=== PATIENT | male | born 1995 | race African-American/Black ===

== ENCOUNTER 2023-12-20 16:52 | Outpatient (CLI) | payer BC, SELFPAY ==
--- NOTE | 2023-12-20 16:53 | MR_ITS ---
PROCEDURE INFORMATION: Exam: MR Right Upper Extremity Other Than Joint Without and With Contrast; Hand Exam date and time: 12/20/2023 5:13 PM Age: 28 years old Clinical indication: Pain; Hand; Right; Additional info: Mass and tenderness of fourth finger TECHNIQUE: Imaging protocol: MR of the right upper extremity without and with contrast. Exam focused on the hand. Contrast material: PROHANCE; Contrast volume: 17 ml; Contrast route: IV; COMPARISON: No relevant prior studies available. FINDINGS: Bones/joints: There is mild marrow edema and enhancement involving of the distal shaft of the 4th proximal phalanx. No discrete fracture or dislocation evident. No severe arthritic changes evident. Collateral ligaments of digits: Unremarkable. No evidence of tear. Flexor compartment tendons: Unremarkable. No evidence of tear. Extensor compartment tendons: Unremarkable. No evidence of tear. Soft tissues: Diffuse soft tissue swelling of the 4th finger including soft tissue swelling/thickening between the flexor tendon in the shaft of the 4th proximal phalanx. No well-defined soft tissue fluid collection. Heterogeneous soft tissue mass measuring approximately 7 mm in diameter noted along the inferomedial margin of the distal shaft of the 4th proximal phalanx appears to produce underlying cortical erosion. IMPRESSION: Mild marrow edema and enhancement of the 4th proximal phalanx with surrounding soft tissue swelling and adjacent heterogeneous 7 mm soft tissue mass with associated cortical erosion. Depending on clinical presentation, differential diagnosis would include infectious process including osteomyelitis, sequela of recent trauma or neoplastic process, specifically chondrosarcoma. Correlation with plain film and/or CT recommended.
[2023-12-20] MEDS: GADOTERIDOL INJ 20ML SYRINGE 17 ML IV (18:00)
[2023-12-20] MEDS: SODIUM CHLORIDE 0.9% 10ML SYR (RAD ONLY) 10 ML IV (18:00)
== END 2023-12-20 23:59 | disposition home or self-care (01) ==
LOC: RAD 16:53
PROVIDERS: PCP Nurse Practitioner Family; Visit Provider Nurse Practitioner Family
DX: R22.31 Localized swelling, mass and lump, right upper limb (principal)
CPT/HCPCS: 73220; A9576

== ENCOUNTER 2024-02-13 16:32 | Outpatient (CLI) | payer BC, SELFPAY ==
[2024-02-13 16:43] LABS: Basophils # 0.1 K/mm3 (0-0.2); Basophils % 0.6 % (0.1-2.0); Eosinophils # 0.1 K/mm3 (0.0-0.4); Eosinophils % 1.2 % (0.1-12.0); Hematocrit 45.6 % (42.0-52.0); Hemoglobin 14.7 g/dL (14.1-18.0); Lymphocytes # 2.2 K/mm3 (0.7-4.5); Lymphocytes % 30.6 % (10-50); Mean Corpuscular HGB Conc 32.1 g/dL (31.8-35.4); Mean Corpuscular Hemoglobin 28.9 pg (27.0-31.2); Mean Corpuscular Volume 89.8 fl (80-94); Monocytes # 0.5 K/mm3 (0.1-1.0); Monocytes % 6.9 % (1.7-9.3); Neutrophils # 4.3 K/mm3 (1.8-7.8); Neutrophils % 60.6 % (37.0-80.0); Platelet Count 302 K/mm3 (142-424); Red Blood Count 5.08 M/mm3 (4.60-6.20); Red Cell Distribution Width 13.9 % (11.5-17.5); White Blood Count 7.1 K/mm3 (4.8-10.8)
[2024-02-13 16:55] LABS: Alanine Aminotransferase 20 U/L (12-78); Albumin Level 4.5 g/dl (3.5-5.0); Albumin/Globulin Ratio 1.5 (1.1-1.8); Alkaline Phosphatase 54 U/L (38-126); Anion Gap 8.2 mEq/L (5-15); Aspartate Amino Transferase 34 U/L (17-59); Bilirubin,Total 0.7 mg/dl (0.2-1.3); Blood Urea Nitrogen 8 mg/dl (9-20); Calcium 9.6 mg/dl (8.4-10.2); Carbon Dioxide 28 mmol/L (22.0-30.0); Chloride 107 mmol/L (98-107); Chol/HDL Ratio 4.1 (1-3.5); Cholesterol 202 mg/dl (140-200); Estimated Glomerular Filt Rate 99 ml/min (>60); GFR (African American) 120 ML/MIN (>60); Glucose 55 mg/dl (74-100); HDL Cholesterol 49 mg/dl (40-60); Potassium 5.2 mmoL/L (3.5-5.1); Sodium 138 mmol/L (136-145); Total Protein,Serum 7.5 g/dl (6.3-8.2); Triglycerides 49 mg/dl (30-150); VLDL Cholesterol 10 mg/dL (0-40)
[2024-02-13 17:06] LABS: Direct LDL Cholesterol 127.87 mg/dL (100-129)
[2024-02-13 17:12] LABS: 25-OH Vitamin D, Total 34.4 ng/mL (30-100)
[2024-02-13 17:26] LABS: Thyroid Stimulating Hormone 0.73 uIU/mL (0.465-4.68)
[2024-02-13 17:51] LABS: HIV (1&2) Antibody Rapid NONREACTIVE (NONREACTIVE)
[2024-02-15 07:13] LABS: HCV Ab Non Reactive (Non Reactive)
[2024-02-16 07:12] LABS: Neisseria gonorrhoeae, NAA Negative (Negative)
== END 2024-02-13 23:59 | disposition home or self-care (01) ==
LOC: LAB.DROPOF 16:33
PROVIDERS: PCP Family Medicine; Visit Provider Family Medicine
DX: Z00.00 Encounter for general adult medical examination without abnormal findings (principal); R53.83 Other fatigue
CPT/HCPCS: 80050; 80053; 80061; 82306; 84443; 85025; 86803; 87389; 87491; 87591

== ENCOUNTER 2024-05-22 08:52 | Emergency (ER) | payer OTHER, SELFPAY ==
[2024-05-22 08:53] VITALS: BP 119/78; PULSE 83; RESP 18; TEMP 36.6; O2SAT 99; BMI 25.1
[2024-05-22 08:56] VITALS: BP 119/78; PULSE 86; O2SAT 99
--- NOTE | 2024-05-22 09:00 | PC.NURSE ---
DR NEVES AT BEDSIDE
--- NOTE | 2024-05-22 09:05 | US_ITS ---
FINAL REPORT TECHNIQUE: Sonographic images of the testicles and scrotum were obtained in the longitudinal and transverse planes. CLINICAL HISTORY: right testicle swelling x 4 days FINDINGS: The right testicle measures 4.3 x 1.7 x 2.7 centimeters. There is no intratesticular mass. The epididymis is mildly prominent and there may be mild edema of the spermatic cord. There may be a small varicocele. There is blood flow to the right testicle. There is no evidence of testicular torsion. There is a small to moderate right hydrocele. The left testicle measures 3.3 x 2.2 x 3.7 centimeters. There is no intratesticular mass. The epididymis is within normal limits. There is blood flow to the left testicle. There is no evidence of testicular torsion. There is no left hydrocele. IMPRESSION: No evidence of intratesticular mass or testicular torsion. Possible right epididymitis with reactive hydrocele. Consider follow-up. Reviewed, Interpreted and Dictated by Glory Arnold MD Transcribed by Antionette Benavides Authenticated and [facility]
--- NOTE | 2024-05-22 09:09 | ED_ITS ---
Discharge Plan Disposition Patient Disposition: Home, Self-Care Prescriptions Prescriptions: New doxycycline hyclate 100 mg capsule 100 mg PO BID 10 Days Qty: 20 0RF No Action trazodone 100 mg tablet 100 mg PO HS aripiprazole 15 mg tablet 15 mg PO DAILY lamotrigine 200 mg tablet 200 mg PO DAILY hydroxyzine HCl 50 mg tablet 50 mg PO TID PRN Referrals Follow up/Referrals: Marshal Kaminski MD [Primary Care Provider] - See instructions Activity Restrictions/Add. Instructions Additional Instructions/Restrictions: Your symptoms are consistent with epididymitis which are most likely in your case secondary to a sexually transmitted disease like gonorrhea or chlamydia. Please follow-up with your primary care doctor for results of the test that we have sent. You have empirically been treated please make sure you take your doxycycline to completion as well. Have your partners tested and treated if your test come back positive. Clinical Impressions Clinical Impression: Epididymitis Instructions Patient Instructions: DI for Urinary Tract Infection (UTI), DI for Urinary Tract Infection in Children Print Language Print Language: Finnish Discharge ED Provider: Cornelius Botello General Adult HPI General Chief complaint: Urogenital-Male Stated complaint: swollen testicles Time Seen by Provider: 05/22/24 08:56 History of Present Illness HPI narrative: Patient is a 28-year-old male presenting today with right testicular pain and swelling. States that he has had symptoms for 4 days and recently went to [place] emergency department had an ultrasound and a CAT scan performed he states that no communication was done with him and he was told that he was good. He states that no STD tests were done which was his main concern. He does have a history of syphilis has had 1 sexual partner over the last year denies any purulence coming from his penis. Denies any other lesions. Denies injection drug use or any other past medical problems. Related Data Home Medications ?Medication ?Instructions ?Recorded ?Confirmed aripiprazole 15 mg tablet 15 mg PO DAILY 11/26/23 02/13/24 hydroxyzine HCl 50 mg tablet 50 mg PO TID PRN 11/26/23 02/13/24 lamotrigine 200 mg tablet 200 mg PO DAILY 11/26/23 02/13/24 trazodone 100 mg tablet 100 mg PO HS 11/26/23 02/13/24 Previous Rx's ?Medication ?Instructions ?Recorded doxycycline hyclate 100 mg capsule 100 mg PO BID 10 days #20 caps 05/22/24 Allergies Allergy/AdvReac Type Severity Reaction Status Date / Time No Known Allergies Allergy Verified 02/13/24 08:40 [facility] Disclaimer: The information contained in this section may have been updated after the patient was seen, as this information can be updated by other users. Medical History PTSD (post-traumatic stress disorder) Depression Anxiety Surgical History History of surgery on lower extremity H/O eye surgery H/O hernia repair Social History Smoking Status: Current every day smoker tobacco type: cigarettes alcohol intake: never substance use type: marijuana current occupational status: employed Travel in the last 8 weeks: None Have you lived/traveled outside [place] in past 30 days?: No Contact w/someone who lives/traveled outside [place] past 30 days?: No Exposure to someone with infectious disease in past 14 days?: No Do you have a fever (greater than 100.4 F or 38 C)?: No Have you tested positive for COVID-19: No Exposed to someone with COVID-19 in past 14 days?: No Do you have a sore throat?: No Do you have a cough?: No Do you have any weakness?: No Do you have any diarrhea?: No Are you experiencing any unusual bleeding?: No Do you have any muscle aches/pain?: No Do you have any abdominal pain?: No Are you experiencing loss of taste or smell?: No ROS Obtained: Yes All systems reviewed & no additional complaints except as documented Physical Exam General General appearance: alert Respiratory Respiratory exam: Present normal lung sounds bilaterally Cardiovascular Cardiovascular exam: Present regular rate exam: Present other (No lesions on external genitalia of right testicle is enlarged and inflamed) Neurological Exam Neurological exam: Present alert Medical Decision Making Medical Records Screening: Per USPSTF and CDC recommendations, given the prevalence of disease in our region, it is our hospital?s policy to screen for HIV and viral Hepatitis for all patients aged 18 and over and those with ongoing risk factors. Johnathan Inquiry Pt receiving controlled substance: No Vital Signs: 05/22/24 08:53 05/22/24 08:56 Temperature 97.8 F Temperature Source Oral Pulse Rate 86 Pulse Rate [Radial] 83 Respiratory Rate 18 Blood Pressure 119/78 Blood Pressure [Right Arm] 119/78 Blood Pressure Mean [Right Arm] 91 Blood Pressure Source [Right Arm] Automatic Cuff Blood Pressure Position [Right Arm] Sitting 02 Sat by Pulse Oximetry 99 99 Oxygen Delivery Method Room Air Orders (Tests/Meds): ED MEDICATIONS Discontinued Medications Generic Name Dose Route Start Last Admin Trade Name Marti PRN Reason Stop Dose Admin Ceftriaxone Sodium 500 mg 05/22/24 10:08 Ceftriaxone 500mg Vial IM 05/22/24 10:09 ONCE ONE Doxycycline Hyclate 100 mg 05/22/24 10:08 Doxycycline Hycl 100 Mg Tablet PO 05/22/24 10:09 ONCE ONE Lidocaine HCl 0 ml 05/22/24 10:08 Lidocaine 1% 5ml Pf Vial IM 05/22/24 10:09 ONCE ONE ORDERS Category Date Time Status Hepatitis B surface antigen screen [HBsAg Screen] Stat Lab 05/22/24 09:15 Received RPR W/RFX Titers Stat Lab 05/22/24 09:15 Received Testicular US [US Testicular] Stat Ultrasound 05/22/24 09:05 Taken Medical Decision Narrative: 28-year-old with above history and physical presents today with right testicular pain history of syphilis. Will send a comprehensive screen for communicable diseases. This includes hepatitis B surface antigen hepatitis C antibody with reflex to RNA HIV screen RPR as well as GC and chlamydia from his urine. Also will obtain a ultrasound of his right testicle most likely has epididymitis or orchitis likely secondary to STDs. Will have a low threshold to empirically treat. Will reassess after this ultrasound is complete Ultrasound consistent with epididymitis will treat for STDs empiric treatment has been initiated in the emergency department and patient may follow-up with primary care doctor. Critical Care Critical Care Time Critical Care Time: No
--- NOTE | 2024-05-22 09:21 | PC.NURSE ---
PT TO US
[2024-05-22] MEDS: DOXYCYCLINE HYCL 100 MG TABLET PO (10:14)
[2024-05-22] MEDS: cefTRIAXone 500MG VIAL 500 MG IM (10:14)
[2024-05-22] MEDS: LIDOCAINE 1% 5ML PF VIAL IM (10:14)
[2024-05-22 10:22] VITALS: BP 138/79; PULSE 80; RESP 20; TEMP 36.9; O2SAT 98
[2024-05-22 15:33] LABS: RPR W/RFX Titers Weak Reactive (Nonreactive)
[2024-05-23 05:53] LABS: Hepatitis B Surface Antigen Negative (Negative)
[2024-05-24 04:08] LABS: Neisseria gonorrhoeae, NAA Negative (Negative)
== END 2024-05-22 10:27 | disposition home or self-care (01) ==
PROVIDERS: Emergency Provider Student in an Organized Health Care Education/Training Program; PCP Family Medicine
DX: N45.1 Epididymitis (principal); N50.819 Testicular pain, unspecified; Z86.19 Personal history of other infectious and parasitic diseases
CPT/HCPCS: 76870; 86592; 86593; 86780; 87340; 87491; 87591; 96372; 99283; J0696